=== PATIENT | female | born 1950 | race Caucasian/White ===

== ENCOUNTER 2016-10-27 18:42 | Inpatient (IN) | payer MEDICARE, OTHER ==
[~2016-10-27] VITALS: Ht 157.5 cm; Wt 63.7 kg
[2016-10-27] MEDS ORDERED: ONDANSETRON 4MG/2ML VIAL (J2405) As Ordered ONE (20:27)
[2016-10-27] MEDS ORDERED: MORPHINE 4 MG/ML 1ML SYRINGE As Ordered ONE (20:27)
[2016-10-27 20:31] LABS: BASO # 0.1 K/mm3 (0.0-0.2); BASO % 1.9 % (0.0-1.0); EOS # 0.1 K/mm3 (0.0-0.50); EOS % 1.8 % (0.0-3.0); LARGE UNSTAINED CELL # 0.1 K/mm3 (0.0-0.4); LARGE UNSTAINED CELL % 1.3 % (0.0-4.0); LYMPH # 1.7 K/mm3 (1.5-4.5); LYMPH % 22.6 % (24.0-44.0); MEAN CORPUSCULAR HEMOGLOBIN 30.3 pg (27.0-33.0); MEAN CORPUSCULAR HGB CONC 31.8 g/dl (32.0-36.5); MEAN CORPUSCULAR VOLUME 95.3 fl (80.0-96.0); MONO # 0.4 K/mm3 (0.0-0.8); NEUTROPHILS # 4.7 K/mm3 (1.8-7.7); NEUTROPHILS % 66.4 % (36.0-66.0); PLATELET COUNT, AUTOMATED 279 k/mm3 (150-450); RED CELL DISTRIBUTION WIDTH 13.5 % (11.5-14.5)
[2016-10-27 20:51] LABS: ALBUMIN 3.9 GM/DL (3.2-5.2); ALBUMIN/GLOBULIN RATIO 1.18 (1.00-1.93); ALKALINE PHOSPHATASE 390 U/L (45-117); ALT/SGPT 865 U/L (12-78); AMYLASE 28 U/L (25-115); ANION GAP 8 MEQ/L (8-16); AST/SGOT 485 U/L (15-37); BILIRUBIN,DIRECT 4.7 MG/DL (0.0-0.2); BILIRUBIN,TOTAL 6.7 MG/DL (0.2-1.0); BLOOD UREA NITROGEN 9 MG/DL (7-18); CARBON DIOXIDE LEVEL 28 MEQ/L (21-32); CHLORIDE LEVEL 103 MEQ/L (98-107); CREATININE FOR GFR 0.86 MG/DL (0.55-1.02); GLOMERULAR FILTRATION RATE > 60.0 (>45); GLUCOSE, FASTING 92 MG/DL (80-110); SODIUM LEVEL 139 MEQ/L (136-145); TOTAL PROTEIN 7.2 GM/DL (6.4-8.2)
[2016-10-27] MEDS ORDERED: ONDA1TAB16 PO (21:51)
[2016-10-27] MEDS ORDERED: OMEP20TA PO (21:51)
[2016-10-27] MEDS ORDERED: ACET50TAOT PO (21:51)
--- NOTE | 2016-10-27 22:00 | REPUSA ---
CLINICAL HISTORY: Biliary colic TECHNIQUE: Realtime sonographic images were obtained in multiple projections. COMMENTS: The liver is of normal size, parenchyma demonstrates normal echogenicity. No discrete hepatic mass is seen. There is no intra or extrahepatic biliary ductal dilatation. CBD measures . The gallbladder is physio logically distended with sludge and stones. Wall thickening of 4.3 mm noted without pericholecystic f luid or sonographic Paulino sign. CBD is dilated at 1.0 cm. The right kidney measures 10.0 cm otherwise unremarkable. No free fluid. IMPRESSION: Cholelithiasis and small sludge is noted with wall thickening. No additional findings to suggest acut e cholecystitis. CBD however is dilated at 1 cm and MRCP should be considered to exclude choledocholi thiasis. Thank you for your kind referral of this patient.
[2016-10-27] MEDS ORDERED: ZOSYN 3.375 GM VIAL (J2543) As Ordered ONE (22:08)
[2016-10-27] MEDS: LR 1,000 ML IV SCH (22:22)
[2016-10-27] MEDS ORDERED: ONDANSETRON 4MG/2ML VIAL (J2405) IV PRN (22:30)
[2016-10-27] MEDS ORDERED: ACETAMINOPHEN TAB 650MG DOSE (2X325MG) PO PRN (22:30)
[2016-10-27] MEDS ORDERED: MORPHINE 4 MG/ML 1ML SYRINGE IV PRN (22:30)
[2016-10-27] MEDS ORDERED: NORCO, ANEXSIA 5/325MG TABLET (HYDROcodone/ACETAMINOPHEN) PO PRN (22:30)
[2016-10-27] MEDS ORDERED: metroNIDAZOLE/NACL 500MG(5MG/ML)100 ML BAG (S0030) As Ordered ONE (23:19)
[2016-10-27 23:58] VITALS: BP 151/85
[2016-10-28] VITALS (7 sets, daily range): BP systolic 117–171; BP diastolic 64–85
--- NOTE | 2016-10-28 00:09 | EDDOCDS ---
Physician Documentation [facility] Name: Surekha Branch Age: 65 yrs Sex: Female : 1950 Arrival Date: 10/27/2016 Time: 18:42 Bed I5 / M5 Private MD: Unknown, Family Dr Disposition: 10/27/16 22:27 Hospitalization ordered by Rito Haider for Inpatient Admission. Preliminary diagnosis are Obstruction of bile duct, Other cholelithiasis with obstruction. - Bed requested for 4 [place]. - Status is Inpatient Admission. lf1 - Condition is Stable. - Problem is new. - Symptoms are unchanged. Historical: - Allergies: no known allergies; - Home Meds: 1. omeprazole 20 mg Oral cpDR 1 cap once daily 2. ondansetron HCl 8 mg Oral tab every 12 hours (Last dose: 10/27/2016 08:00) - PMHx: none; - PSHx: ; - Social history: Smoking status: Patient uses tobacco products, light tobacco smoker. No barriers to communication noted, The patient speaks fluent Hong Konger, Speaks appropriately for age. - Family history: Not pertinent. - : The pt / caregiver states he / she is not on anticoagulants. Home medication list is obtained from the patient, pill bottles. - Exposure Risk Screening:: None identified. Vital Signs: 10/27 18:44 BP 146 / 84; Pulse 76; Resp 18; Temp 97.4(O); Pulse Ox 97% on R/A; Weight 60.78 kg / elp 134 lbs (R); Height 5 ft. 2 in. (157.48 cm) (R); 22:05 BP 122 / 67; Pulse 73; Resp 20; Temp 97.7(O); Pulse Ox 96% on R/A; Pain 0/10; jmv 23:05 BP 126 / 74; Pulse 72; Resp 16; Temp 97.3(O); Pulse Ox 96% on R/A; Pain 0/10; lf1 23:07 Pain 0/10; lf1 18:44 Body Mass Index 24.51 (60.78 kg, 157.48 cm) elp MDM: 19:58 NS 0.9% 1000 ml IV at bolus once ordered. mo1 19:58 Ondansetron 4 mg IVP once ordered. mo1 19:58 IV Saline Lock ordered. mo1 19:58 Undress patient appropriately for examination ordered. mo1 19:58 morphine 4 mg IVP once ordered. mo1 19:59 Basic Metabolic Profile Ordered. EDMS 19:59 CBC with Diff Ordered. EDMS 19:59 Lipase Ordered. EDMS 19:59 Liver Profile Ordered. EDMS 19:59 Urinalysis Ordered. EDMS 19:59 Amylase Ordered. EDMS 19:59 Urine Culture Ordered. EDMS 19:59 NOTHING BY MOUTH+DIET ordered. EDMS 20:17 Financial registration complete. gjb 20:20 [facility] Payment Agreement was scanned into [employer] (Inspect Manager) and attached to record. gjb 21:01 US Gallbladder Ordered. EDMS 21:10 Amylase Reviewed. mo1 21:11 Lipase Reviewed. mo1 21:11 Basic Metabolic Profile Reviewed. mo1 21:11 Urinalysis Reviewed. mo1 21:12 Liver Profile Reviewed. mo1 21:12 CBC with Diff Reviewed. mo1 21:15 -Blood Culture (Adults Only), peripheral from different site, or from device/port/PICC mo1 etc. if present ordered. 21:15 -Blood Culture Ordered. EDMS 21:19 Lactic Acid (Stewart tube on ice) Ordered. EDMS 21:23 -Blood Culture (Adults Only), peripheral from different site, or from device/port/PICC rs6 etc. if present complete. 21:25 BLOOD CULTURES Ordered. EDMS 21:26 BED REQUEST+ADM ordered. EDMS 21:47 Piperacillin-Tazobactam 3.375 grams IVPB once over 30 mins; dilute in 50mL of NS or D5W mo1 ordered. 22:28 Admission / Observation Status ordered. EDMS 22:29 NPO DIET ordered. EDMS 23:15 metroNIDAZOLE 500 mg IV at 100 mL/hr once over 60 mins ordered. lf1 23:16 LR Solution 1000 ml IV at 125 mL/hr once ordered. lf1 Administered Medications: 20:39 Drug: morphine 4 mg [morphine 4 mg/mL intravenous cartridge (1 mL)] Route: IVP; Site: lf1 right antecubital; 23:07 Follow up: Pain 0/10 Adult; Response: Pain is resolved lf1 20:40 Drug: NS 0.9% 1000 ml [sodium chloride 0.9 % intravenous solution] Route: IV; Rate: lf1 bolus; Site: right antecubital; 23:07 Follow up: IV Status: Completed infusion; Infusion discontinued; IV Intake: 1000ml lf1 20:40 Drug: Ondansetron 4 mg [ondansetron HCl 2 mg/mL intravenous solution (2 mL)] Route: lf1 IVP; Site: right antecubital; 22:15 Drug: NS 0.9% 50 ml, Piperacillin-Tazobactam 3.375 grams Route: IVPB; Infused Over: 30 ttb mins; Site: right antecubital; 22:57 Follow up: Response: No Adverse Reaction; No significant change.; IV Status: Completed ttb infusion; IV Intake: 50ml 23:07 Follow up: IV Status: Completed infusion; IV Intake: 50ml lf1 23:14 CANCELLED (Duplicate Order): metroNIDAZOLE 500 mg IV at 100 mL/hr once over 60 mins lf1 23:27 Drug: metroNIDAZOLE 500 mg [metronidazole 500 mg/100 mL-sodium chloride(iso) lf1 intravenous piggyback] Route: IV; Rate: 100 mL/hr; Infused Over: 60 mins; Site: right antecubital; 23:35 Drug: LR 1000 ml [lactated ringers intravenous solution] {Note: Held until antibiotic lf1 finished, transported with pt. on admit.} Route: IV; Rate: 125 mL/hr; Site: right antecubital; Signatures: Dispatcher [employer] Emilia Metz RN RN Juanpablo Ovalle RN RN mlb1 Analisa Barnard RN RN jo3 Ford, LisaRN RN lf1 Juanpablo Chase PA PA mo1 Maggi Landry, LILIANE CLINICAL UNIT COORDINATOR rs6 Cyndie Gautam Teresa RN ttb The chart was reviewed and I authenticate all verbal orders and agree with the evaluation and treatment provided.Corrections: (The following items were deleted from the chart) 23:14 23:14 metroNIDAZOLE 500 mg IV at 100 mL/hr once over 60 mins ordered. lf1 lf1 Attachments: 20:20 [facility] Payment Agreement [email or web address]
--- NOTE | 2016-10-28 00:09 | EDDOCDS ---
Nurse's Notes [facility] Name: Surekha Branch Age: 65 yrs Sex: Female : 1950 Arrival Date: 10/27/2016 Time: 18:42 Bed I5 / M5 Private MD: Unknown, Family Dr Diagnosis: Obstruction of bile duct;Other cholelithiasis with obstruction Presentation: 10/27 18:49 Presenting complaint: Patient states: Upper abdominal pain nonstop for the past four mlb1 days US at [facility] this am sent here from PCP Robert Bae. Adult Sepsis Screening: The patient does not have new or worsening altered mentation. Patient's respiratory rate is less than 22. Systolic blood pressure is greater than 100. Patient has a qSOFA score of 0- Negative Sepsis Screen. Suicide/Homicide risk assessment- the patient denies having any suicidal and/or homicidal ideations and does not present with any other emotional, behavioral or mental health complaints. Status: Patient is not a director professional services or dependent. Transition of care: patient was received from a primary care office; Robert Bae. 18:49 Acuity: MAURICIO Level 3 mlb1 18:49 Method Of Arrival: Walkin/Carried/Asstd mlb1 Triage Assessment: 18:55 General: Appears in no apparent distress, Behavior is appropriate for age, cooperative. mlb1 Pain: Location: right upper quadrant and left upper quadrant Pain currently is 4 out of 10 on a pain scale. Pt Declines HIV testing. Historical: - Allergies: no known allergies; - Home Meds: 1. omeprazole 20 mg Oral cpDR 1 cap once daily 2. ondansetron HCl 8 mg Oral tab every 12 hours (Last dose: 10/27/2016 08:00) - PMHx: none; - PSHx: ; - Social history: Smoking status: Patient uses tobacco products, light tobacco smoker. No barriers to communication noted, The patient speaks fluent Yakut, Speaks appropriately for age. - Family history: Not pertinent. - : The pt / caregiver states he / she is not on anticoagulants. Home medication list is obtained from the patient, pill bottles. - Exposure Risk Screening:: None identified. Screenin:27 Screening information is obtained from the patient. Fall risk: No risks identified. jo3 Assistance ADL's: requires no assistance with activities of daily living. Abuse/DV Screen: The patient / caregiver reports he/she is: not in a situation that causes fear, pain or injury. Nutritional screening: No deficits noted. Advance Directives: There is no active DNR order. home support is adequate. Assessment: 20:27 General: Appears in no apparent distress, comfortable, Behavior is appropriate for age, jo3 cooperative. Neurological: Level of Consciousness is awake, alert, Oriented to person, place, time. Cardiovascular: No deficits noted. Respiratory: Airway is patent Respiratory effort is even, unlabored. GI: Abdomen is non- distended Bowel sounds present X 4 quads. Abd is soft X 4 quads Abd is tender to palpation in right upper quadrant. Derm: Skin is pink, warm & dry. 21:30 General: Appears comfortable, Behavior is cooperative. Pain: Location: abdomen Pain lf1 currently is 4 out of 10 on a pain scale. Neurological: Level of Consciousness is awake, alert. Respiratory: Respiratory effort is even, unlabored. 22:24 General: Appears comfortable, Behavior is cooperative. Pain: Location: left upper lf1 quadrant and right upper quadrant Pain currently is 6 out of 10 on a pain scale. Neurological: Level of Consciousness is awake, alert, Oriented to person, place, time. Respiratory: Respiratory effort is even, unlabored. GI: Denies nausea, vomiting. : Urine is tea colored urine. Derm: Skin is normal. 22:59 General: abx completed and pt ready for transport to floor. Report given to next RN to ttb continue care.. Neurological: Level of Consciousness is awake, alert. Cardiovascular: Chest pain is denied. Respiratory: Denies cough, shortness of breath. GI: Denies nausea, vomiting. 23:05 General: Appears comfortable, Behavior is cooperative. Pain: Denies pain. Neurological: lf1 Level of Consciousness is awake, alert, obeys commands, Oriented to person, place, time. EENT: No deficits noted. Cardiovascular: Chest pain is denied. Respiratory: Respiratory effort is even, unlabored. GI: Denies nausea, vomiting. Derm: Skin is normal. Injury Description: No known injury. 23:36 Adult Sepsis Screening: The patient does not have new or worsening altered mentation. lf1 Patient's respiratory rate is less than 22. Systolic blood pressure is greater than 100. Patient has a qSOFA score of 0- Negative Sepsis Screen. General: Appears in no apparent distress, comfortable, Behavior is cooperative. Pain: Denies pain. Neurological: Level of Consciousness is awake, alert. Respiratory: Respiratory effort is even, unlabored. Derm: Skin is normal. Vital Signs: 18:44 BP 146 / 84; Pulse 76; Resp 18; Temp 97.4(O); Pulse Ox 97% on R/A; Weight 60.78 kg (R); elp Height 5 ft. 2 in. (157.48 cm) (R); 22:05 BP 122 / 67; Pulse 73; Resp 20; Temp 97.7(O); Pulse Ox 96% on R/A; Pain 0/10; jmv 23:05 BP 126 / 74; Pulse 72; Resp 16; Temp 97.3(O); Pulse Ox 96% on R/A; Pain 0/10; lf1 23:07 Pain 0/10; lf1 18:44 Body Mass Index 24.51 (60.78 kg, 157.48 cm) [facility] Vitals: 18:44 Log In Time: October 27, 2016 at 18:41. [facility] ED Course: 18:44 Patient visited by Stacie Do PCA. elp 18:44 Unknown, Family Dr is Private Physician. elp 18:44 Patient moved to Waiting elp 18:45 Patient visited by Stacie Do PCA. elp 18:45 Patient moved to Pre RCE gr2 18:49 Patient visited by Juanpablo Boles, RN. mlb1 18:53 Triage Initiated mlb1 18:56 Patient visited by Juanpablo Boles, RN. mlb1 19:15 Patient moved to Triage 3 rs6 19:38 Juanpablo Chase PA is PHCP. mo1 19:38 Kam Ojeda DO is Attending Physician. mo1 19:56 Patient moved to I5 / M5 rs6 19:57 Patient visited by Juanpablo Chase PA. mo1 20:20 [facility] [place] Agreement was scanned into [employer] and attached to record. gjb 20:26 Amylase Sent. jo3 20:26 Basic Metabolic Profile Sent. jo3 20:26 CBC with Diff Sent. jo3 20:26 Lipase Sent. jo3 20:26 Liver Profile Sent. jo3 20:27 The patient / caregiver is instructed regarding the plan of care and ED course. jo3 20:27 Inserted saline lock: 18 gauge in right antecubital area. Labs drawn. (by ED staff). jo3 Sent per order to lab. 20:30 Patient visited by Analisa Barnard RN. jo3 20:40 Urinalysis Sent. lf1 20:40 Urine Culture Sent. lf1 21:17 Patient name changed from Surekha\S\\S\Branch\S\ to Surekha\S\ \S\Branch. EDMS 21:19 Patient moved to Ultrasound br3 21:42 Patient moved to I5 / M5 br3 22:06 Patient visited by Kana Waite PCA. jmv 22:24 Lactic Acid (Stewart tube on ice) Sent. lf1 22:24 -Blood Culture Sent. lf1 22:26 Rito Haider MD is Hospitalizing Provider. mo1 22:29 Patient visited by Kathrin Caldwell RN. lf1 22:44 US Gallbladder Returned. EDMS 23:00 Patient visited by Bella Foster RN. ttb 23:05 No procedures done that require assistance. lf1 Administered Medications: 20:39 Drug: morphine 4 mg [morphine 4 mg/mL intravenous cartridge (1 mL)] Route: IVP; Site: lf1 right antecubital; 23:07 Follow up: Pain 0/10 Adult; Response: Pain is resolved lf1 20:40 Drug: NS 0.9% 1000 ml [sodium chloride 0.9 % intravenous solution] Route: IV; Rate: lf1 bolus; Site: right antecubital; 23:07 Follow up: IV Status: Completed infusion; Infusion discontinued; IV Intake: 1000ml lf1 20:40 Drug: Ondansetron 4 mg [ondansetron HCl 2 mg/mL intravenous solution (2 mL)] Route: lf1 IVP; Site: right antecubital; 22:15 Drug: NS 0.9% 50 ml, Piperacillin-Tazobactam 3.375 grams Route: IVPB; Infused Over: 30 ttb mins; Site: right antecubital; 22:57 Follow up: Response: No Adverse Reaction; No significant change.; IV Status: Completed ttb infusion; IV Intake: 50ml 23:07 Follow up: IV Status: Completed infusion; IV Intake: 50ml lf1 23:14 CANCELLED (Duplicate Order): metroNIDAZOLE 500 mg IV at 100 mL/hr once over 60 mins lf1 23:27 Drug: metroNIDAZOLE 500 mg [metronidazole 500 mg/100 mL-sodium chloride(iso) lf1 intravenous piggyback] Route: IV; Rate: 100 mL/hr; Infused Over: 60 mins; Site: right antecubital; 23:35 Drug: LR 1000 ml [lactated ringers intravenous solution] {Note: Held until antibiotic lf1 finished, transported with pt. on admit.} Route: IV; Rate: 125 mL/hr; Site: right antecubital; Intake: 22:57 IV: 50.00ml; Total: 50.00ml. ttb 23:07 IV: 50.00ml; Total: 100.00ml. lf1 23:07 IV: 1000.00ml; Total: 1100.00ml. lf1 Order Results: Lab Order: Basic Metabolic Profile; SPEC'M 10/27/16 20:21 Test: GLUCOSE, FASTING; Value: 92; Range: 80-110; Units: MG/DL; Status: F Test: BLOOD UREA NITROGEN; Value: 9; Range: 7-18; Units: MG/DL; Status: F Test: CREATININE FOR GFR; Value: 0.86; Range: 0.55-1.02; Units: MG/DL; Status: F Test: GLOMERULAR FILTRATION RATE; Value: > 60.0; Range: >45; Status: F Test: SODIUM LEVEL; Value: 139; Range: 136-145; Units: MEQ/L; Status: F Test: POTASSIUM SERUM; Value: 4.0; Range: 3.5-5.1; Units: MEQ/L; Status: F Test: CHLORIDE LEVEL; Value: 103; Range: 98-107; Units: MEQ/L; Status: F Test: CARBON DIOXIDE LEVEL; Value: 28; Range: 21-32; Units: MEQ/L; Status: F Test: ANION GAP; Value: 8; Range: 8-16; Units: MEQ/L; Status: F Test: CALCIUM LEVEL; Value: 9.0; Range: 8.8-10.2; Units: MG/DL; Status: F Test Note: ; Units are mL/min/1.73 m2 Chronic Kidney Disease Staging per NKF: Stage I & II GFR >=60 Normal to Mildly Decreased Stage III GFR 30-59 Moderately Decreased Stage IV GFR 15-29 Severely Decreased Stage V GFR <15 Very Little GFR Left ESRD GFR <15 on TENSILE TESTER Lab Order: CBC with Diff; SPEC'M 10/27/16 20:21 Test: WHITE BLOOD COUNT; Value: 7.0; Range: 4.0-10.0; Units: K/mm3; Status: F Test: RED BLOOD COUNT; Value: 4.68; Range: 4.00-5.40; Units: M/mm3; Status: F Test: HEMOGLOBIN; Value: 14.2; Range: 12.0-16.0; Units: g/dl; Status: F Test: HEMATOCRIT; Value: 44.6; Range: 36.0-47.0; Units: %; Status: F Test: MEAN CORPUSCULAR VOLUME; Value: 95.3; Range: 80.0-96.0; Units: fl; Status: F Test: MEAN CORPUSCULAR HEMOGLOBIN; Value: 30.3; Range: 27.0-33.0; Units: pg; Status: F Test: MEAN CORPUSCULAR HGB CONC; Value: 31.8; Range: 32.0-36.5; Abnormal: Below low normal; Units: g/dl; Status: F Test: RED CELL DISTRIBUTION WIDTH; Value: 13.5; Range: 11.5-14.5; Units: %; Status: F Test: PLATELET COUNT, AUTOMATED; Value: 279; Range: 150-450; Units: k/mm3; Status: F Test: NEUTROPHILS %; Value: 66.4; Range: 36.0-66.0; Abnormal: Above high normal; Units: %; Status: F Test: LYMPH %; Value: 22.6; Range: 24.0-44.0; Abnormal: Below low normal; Units: %; Status: F Test: MONO %; Value: 6.0; Range: 0.0-5.0; Abnormal: Above high normal; Units: %; Status: F Test: EOS %; Value: 1.8; Range: 0.0-3.0; Units: %; Status: F Test: BASO %; Value: 1.9; Range: 0.0-1.0; Abnormal: Above high normal; Units: %; Status: F Test: LARGE UNSTAINED CELL %; Value: 1.3; Range: 0.0-4.0; Units: %; Status: F Test: NEUTROPHILS #; Value: 4.7; Range: 1.8-7.7; Units: K/mm3; Status: F Test: LYMPH #; Value: 1.7; Range: 1.5-4.5; Units: K/mm3; Status: F Test: MONO #; Value: 0.4; Range: 0.0-0.8; Units: K/mm3; Status: F Test: EOS #; Value: 0.1; Range: 0.0-0.50; Units: K/mm3; Status: F Test: BASO #; Value: 0.1; Range: 0.0-0.2; Units: K/mm3; Status: F Test: LARGE UNSTAINED CELL #; Value: 0.1; Range: 0.0-0.4; Units: K/mm3; Status: F Lab Order: Lipase; SPEC'M 10/27/16 20:21 Test: LIPASE; Value: 84; Range: 73-393; Units: U/L; Status: F Lab Order: Liver Profile; SPEC'M 10/27/16 20:21 Test: AST/SGOT; Value: 485; Range: 15-37; Abnormal: Above high normal; Units: U/L; Status: F Test: ALT/SGPT; Value: 865; Range: 12-78; Abnormal: Above high normal; Units: U/L; Status: F Test: ALKALINE PHOSPHATASE; Value: 390; Range: 45-117; Abnormal: Above high normal; Units: U/L; Status: F Test: BILIRUBIN,TOTAL; Value: 6.7; Range: 0.2-1.0; Abnormal: Above high normal; Units: MG/DL; Status: F Test: BILIRUBIN,DIRECT; Value: 4.7; Range: 0.0-0.2; Abnormal: Above high normal; Units: MG/DL; Status: F Test: TOTAL PROTEIN; Value: 7.2; Range: 6.4-8.2; Units: GM/DL; Status: F Test: ALBUMIN; Value: 3.9; Range: 3.2-5.2; Units: GM/DL; Status: F Test: ALBUMIN/GLOBULIN RATIO; Value: 1.18; Range: 1.00-1.93; Status: F Lab Order: Urinalysis; SPEC'M 10/27/16 20:30 Test: APPEARANCE, URINE; Value: CLEAR; Range: CLEAR; Status: F Test: COLOR, URINE; Value: ALICE; Range: YELLOW; Status: F Test: PH,URINE; Value: 5.0; Range: 5.0-9.0; Units: UNITS; Status: F Test: SPECIFIC GRAVITY URINE AUTO; Value: 1.030; Range: 1.002-1.035; Status: F Test: PROTEIN, URINE AUTO; Value: 1+; Range: NEGATIVE; Abnormal: Above high normal; Units: mg/dL; Status: F Test: GLUCOSE, URINE (UA) AUTO; Value: NEGATIVE; Range: NEGATIVE; Units: mg/dL; Status: F Test: KETONE, URINE AUTO; Value: TRACE; Range: NEGATIVE; Abnormal: Above high normal; Units: mg/dL; Status: F Test: UROBILINOGEN, URINE AUTO; Value: 4.0; Range: 0.0-2.0; Abnormal: Above high normal; Units: mg/dL; Status: F Test: BILIRUBIN, URINE AUTO; Value: 2+; Range: NEGATIVE; Abnormal: Above high normal; Status: F Test: NITRITE, URINE AUTO; Value: NEGATIVE; Range: NEGATIVE; Status: F Test: LEUKOCYTE ESTERASE, URINE AUTO; Value: 1+; Range: NEGATIVE; Abnormal: Above high normal; Status: F Test: BLOOD, URINE BLOOD; Value: NEGATIVE; Range: NEGATIVE; Status: F Test: WBC, URINE AUTO; Value: 23; Range: 0-3; Abnormal: Above high normal; Units: /HPF; Status: F Test: RBC, URINE AUTO; Value: 1; Range: 0-3; Units: /HPF; Status: F Test: BACTERIA, URINE AUTO; Value: 1+; Range: NEGATIVE; Abnormal: Above high normal; Status: F Test: SQUAMOUS EPITHELIAL CELL UR AU; Value: 2; Range: 0-6; Units: /HPF; Status: F Test: MUCUS, URINE; Value: LARGE; Range: NEGATIVE; Status: F Test: HYALINE CAST, URINE AUTO; Value: 0; Range: 0-1; Units: /LPF; Status: F Lab Order: Amylase; SPEC'M 10/27/16 20:21 Test: AMYLASE; Value: 28; Range: 25-115; Units: U/L; Status: F Lab Order: Lactic Acid (Stewart tube on ice); SPEC'M 10/27/16 22:18 Test: LACTIC ACID LEVEL, LACTATE; Value: 0.8; Range: 0.4-2.0; Units: MMOL/L; Status: F Radiology Order: US Gallbladder Test: US Gallbladder REASON FOR EXAMINATION: Biliary Colic; ; CLINICAL HISTORY: Biliary colic; TECHNIQUE: Realtime sonographic images were obtained in multiple projections.; COMMENTS:; The liver is of normal size, parenchyma demonstrates normal echogenicity. No discrete hepatic mass is; seen.; There is no intra or extrahepatic biliary ductal dilatation. CBD measures . The gallbladder is physio; logically distended with sludge and stones. Wall thickening of 4.3 mm noted without pericholecystic f; luid or sonographic Paulino sign. CBD is dilated at 1.0 cm.; The right kidney measures 10.0 cm otherwise unremarkable.; No free fluid.; IMPRESSION:; Cholelithiasis and small sludge is noted with wall thickening. No additional findings to suggest acut; e cholecystitis. CBD however is dilated at 1 cm and MRCP should be considered to exclude choledocholi; thiasis.; Thank you for your kind referral of this patient.; ; Outcome: 22:27 Decision to Hospitalize by Provider. mo1 10/28 00:08 Patient left the ED. lf1 Signatures: Dispatcher [employer] EDWI Juanpablo Boles RN RN mlb1 Analisa BarnardRN RN [id number] Kathrin CaldwellRN RN lf1 Maricruz Rutherford br3 Bella Foster RN RN Duane Yañez Michael, PA PA mo1 Stacie Do, WEB EDITOR WEB EDITOR elp Maggi Landry, WEB EDITOR WEB EDITOR rs6 Cyndie Gautamb Kana Waite, WEB EDITOR WEB EDITOR jmv MTDD
[2016-10-28] MEDS: AMPICILLIN SOD/SULBACTAM SOD 3 GM in D5W MINI-BAG PLUS 100 ML IV SCH ×4 (04:53→21:11)
[2016-10-28] MEDS: LR 1,000 ML IV SCH ×3 (05:00→21:12)
[2016-10-28] MEDS: metroNIDAZOLE 500 MG in APPROPRIATE DILUENT 1 EA IV SCH ×2 (08:49→16:34)
[2016-10-28] MEDS: SENOKOT S TAB PO SCH ×2 (08:49→21:11)
[2016-10-28] MEDS ORDERED: PANTOPRAZOLE 40MG INJ (PROTONIX) (C9113) IV SCH (09:00)
--- NOTE | 2016-10-28 09:05 | HPE ---
DATE OF ADMISSION: 10/27/2016 CHIEF COMPLAINT: Abdominal pain. HISTORY OF PRESENT ILLNESS: Ms. Branch is a 65-year-old female who is relatively healthy. She was sent by her primary care doctor after she presented to her complaining of a 4-5 day history of steady epigastric pain and discomfort. The patient reports she has been having intermittent on and off vague the pain, usually post prandial, starts in her periumbilical area and radiates to the right upper quadrant, her right shoulder and in between her scapula. This would go away on its own. She was started on Prilosec thinking this was dyspeptic like symptoms. For the past at least a 4 days, this has been a steady sharp pain accompanied with nausea, anorexia, though she denies any fevers or chills. She went to her physician who did an ultrasound showing a dilated common bile duct. Her LFTs were abnormal. She was then sent to the emergency room for further evaluation. In the ER she was found to have elevated LFTs. I was then called in as well as the talent development manager for what is suspected to be biliary obstruction from a common bile duct stone. ALLERGIES: No known drug allergies. MEDICATIONS: None. PAST MEDICAL HISTORY: None. HOME MEDICATIONS: - acetaminophen 500 mg tablet by mouth every 6 hours for pain - omeprazole 20 mg by mouth twice a day - Zofran ODT 8 mg by mouth twice a day as needed PAST SURGICAL HISTORY: section. REVIEW OF SYSTEMS: As mentioned, ongoing abdominal pain for the past few months. She denies any unexplained weight loss. Denies fevers or chills. The patient denies any chronic or recurrent headaches, history of strokes or seizures. Denies any problems with vision. She wears glasses. She denies any problems with hearing. Denies any hoarseness in her voice, dysphagia on swallowing. The patient denies any chest pains, palpitations, paroxysmal nocturnal dyspnea. The patient denies any chronic cough or colds, dyspnea on effort. Gastrointestinal symptoms enumerated in history of present illness. Denies dysuria, hematuria, nocturia. No prior history of diabetes, thyroid problems or other endocrine problems. She denies polydipsia, polyphagia, or polyuria. The patient denies any bleeding or clotting disorder. Denies any severe psychiatric impairment. Denies radiocontrast allergy. Denies any problems with general anesthesia. PHYSICAL EXAMINATION: Her vitals in the emergency room on arrival at about 6:44 p.m. blood pressure was 146/84, pulse rate 76, respiratory rate of 18, temperature of 97.4, pulse oximetry 97% on room air. Weight is 60.7 kg, height is 57 cm, BMI of 25.7 kg per meter squared. At the time that I examined the patient, the patient reports the discomfort having gone away. When she presented she reported her pain as 10/10 centered in her midepigastric area. Skin is warm, dry. She is awake, alert and oriented. She is pleasant and cooperative. Normocephalic, atraumatic. [place] palpebral conjunctiva. Anicteric sclerae. Lips appear mildly dry. Neck is supple. No lymphadenopathy. No thyromegaly. Lung sounds are clear to auscultation bilaterally. No wheezing appreciated. Heart rate and rhythm are regular with no murmurs. Abdomen is flat, soft, minimally distended, slightly tympanitic on percussion. No umbilical groin herniations, no hepatosplenomegaly, minimal discomfort but no real tenderness on examination centered at the epigastric area. No rebound or guarding. Extremities did not show any edema, deformities or cyanosis. LABORATORIES: White cell count 7.0, hemoglobin 14.2, hematocrit 44.6, platelet count is 279, neutrophils are 66%. Chemistries: Sodium is 139, potassium 4.0, chloride is 103, CO2 of 28, BUN 9, creatinine 0.86, lactic acid 0.8, total bilirubin is 6.7, direct fraction is 4.7, AST 485, ALT of 865, alkaline phosphatase of 390, amylase of 28, lipase of 84. Gallbladder ultrasound has been performed and shows evidence for cholelithiasis and sludge with minimal wall thickening. Common bile duct is noted to be 1 cm. No stones visualized. IMPRESSION: 1. Abnormal LFTs. 2. Biliary obstruction secondary to what most likely is a common bile duct stone. 3. Cholelithiasis. PLAN: Gastroenterology has been consulted. Dr. Parr has seen the patient and is planning to bring the patient to the operating room for an ERCP. If this is successful and no complications, will go ahead and schedule the patient for a laparoscopic cholecystectomy tomorrow. I have discussed with her the details of the procedure, its risks and benefits. For now, we will continue her on Unasyn and metronidazole for coverage. She is on IV fluid. She is nothing by mouth.
[2016-10-28] MEDS ORDERED: fentaNYL 100 MCG/2 ML INJECTION (J3010) As Ordered ONE (17:42)
[2016-10-28] MEDS ORDERED: LIDOCAINE 2% INJ 100 MG/5 ML SDV (FOR ANES.) As Ordered ONE (17:42)
[2016-10-28] MEDS ORDERED: ROCURONIUM BROMIDE 50 MG/5 ML VIAL As Ordered ONE (17:42)
[2016-10-28] MEDS ORDERED: MIDAZOLAM INJ 2 MG/2 ML VIAL (J2250) As Ordered ONE (17:42)
[2016-10-28] MEDS ORDERED: PROPOFOL 200 MG/20 ML VIAL As Ordered ONE (17:42)
[2016-10-28] MEDS ORDERED: ISOVUE-300 61% 50ML VIAL (Q9967) As Ordered ONE (17:51)
[2016-10-28] MEDS ORDERED: ISOVUE-300 61% 50ML VIAL (Q9967) IV ONE (18:02)
[2016-10-28] MEDS ORDERED: GLYCOPYRROLATE INJ 0.2 MG/ML 2 ML VIAL As Ordered ONE (18:02)
[2016-10-28] MEDS ORDERED: NEOSTIGMINE 1MG/ML 5 ML SYRINGE (J2710) As Ordered ONE (18:02)
[2016-10-28] MEDS ORDERED: ONDANSETRON 4MG/2ML VIAL (J2405) As Ordered ONE (18:02)
--- NOTE | 2016-10-28 18:15 | ROOR ---
Patient Name: Surekha Branch Procedure Date: 10/28/2016 5:27 PM Date of : 1950 Age: 65 Room: Main OR Gender: Female Note Status: Finalized Procedure: ERCP Indications: Abdominal pain of suspected biliary origin, Jaundice, Abnormal liver function test Providers: Philippe PARR MD Referring MD: 2. Inpatient 2. Inpatient Requesting Provider: Medicines: Monitored Anesthesia Care, General Anesthesia Complications: No immediate complications. Procedure: Pre-Anesthesia Assessment: - The heart rate, respiratory rate, oxygen saturations, blood pressure, adequacy of pulmonary ventilation, and response to care were monitored throughout the procedure. The Duodenoscope was introduced through the mouth, and advanced to the duodenum and used to inject contrast into the bile duct. The ERCP was accomplished without difficulty. The patient tolerated the procedure well. Findings: The dish washer film was normal. The esophagus was successfully intubated under direct vision. The scope was advanced from the mouth to the duodenum. The pharynx, larynx and associated structures, as well as the upper GI tract, were normal. The major papilla was lacerated. The major papilla was congested. A straight Roadrunner wire was passed into the biliary tree. The short-nosed traction sphincterotome was passed over the guidewire and the bile duct was then deeply cannulated. Contrast was injected. I personally interpreted the bile duct images. Ductal flow of contrast was adequate. Image quality was adequate. Opacification of the entire opacified area was successful. The maximum diameter of the ducts was 10 mm. The intra-hepatic and extra-hepatic biliary duct system was normal. The biliary orifice was stenotic. This appeared benign. An 8 mm biliary sphincterotomy was made with a traction (standard) sphincterotome using ERBE electrocautery. There was no post-sphincterotomy bleeding. The biliary tree was swept with a 10 mm balloon starting at the bifurcation. Nothing was found. Impression: - The major papilla appeared lacerated and congested. - The cholangiogram was normal. However I am unable to confirm spontaneous drainage of duct after 4-5 minutes of observation. 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 - A sphincterotomy was performed to allow for spontaneous contrast drainage. - The biliary tree was swept and nothing was found. Recommendation: - Observe patient's clinical course. - Clear liquid diet - advance as tolerated to resume regular diet. - Surgical consultation for consideration of cholecystectomy at the next available appointment. Philippe Parr MD Philippe PARR MD 10/28/2016 6:15:15 PM This report has been signed electronically. Number of Addenda: 0 Note Initiated On: 10/28/2016 5:27 PM Estimated Blood Loss: Estimated blood loss: none.
[2016-10-28] MEDS ORDERED: LR 1,000 ML IV SCH (18:45)
[2016-10-28] MEDS ORDERED: ONDANSETRON 4MG/2ML VIAL (J2405) IV PRN (18:45)
[2016-10-28] MEDS ORDERED: HYDROmorphone HCL 1 MG/ML SYRINGE (J1170) IV PRN (18:45)
[2016-10-28] MEDS ORDERED: fentaNYL 100 MCG/2 ML INJECTION (J3010) IV PRN (18:45)
--- NOTE | 2016-10-28 19:01 | REP ---
ERCP in OR, fluoroscopic guidance: 10/28/2016. 18 images from C-arm fluoroscopy guidance provided to Dr. Parr of the gastroenterology division. The 18 images show endoscopy scope in the duodenum. Probe extends into the biliary tract with the common duct well seen and opacified. It has smooth margins and no filling defects visible on these images. The main hepatic duct, right and left intrahepatic ducts were grossly intact without stenosis, stricture or mass. Contrast extends to the cystic duct into the gallbladder. Gallbladder is partially filled. No filling defects are seen within it. There appears to be some narrowing of its distal aspect towards the cystic duct. The balloon catheter is pulled through the common duct for this exam. No persistent filling defects or other acute finding. Fluoroscopy time: 2 minutes 30 seconds. Signed by Jagdish Henry MD 10/28/2016 08:19 P
[2016-10-28] MEDS: NORCO, ANEXSIA 5/325MG TABLET (HYDROcodone/ACETAMINOPHEN) PO PRN (21:11)
[2016-10-29] VITALS (10 sets, daily range): BP systolic 108–164; BP diastolic 58–80
[2016-10-29] MEDS: metroNIDAZOLE 500 MG in APPROPRIATE DILUENT 1 EA IV SCH ×3 (00:08→15:01)
[2016-10-29] MEDS: LR 1,000 ML IV SCH (02:27)
[2016-10-29] MEDS: AMPICILLIN SOD/SULBACTAM SOD 3 GM in D5W MINI-BAG PLUS 100 ML IV SCH ×4 (04:23→21:34)
[2016-10-29 07:32] LABS: BASO % 0.6 % (0.0-1.0); EOS # 0.1 K/mm3 (0.0-0.50); LARGE UNSTAINED CELL # 0.1 K/mm3 (0.0-0.4); LYMPH # 1.1 K/mm3 (1.5-4.5); MEAN CORPUSCULAR HEMOGLOBIN 31.6 pg (27.0-33.0); MEAN CORPUSCULAR VOLUME 92.8 fl (80.0-96.0); MONO # 0.2 K/mm3 (0.0-0.8); MONO % 5.5 % (0.0-5.0); NEUTROPHILS # 1.9 K/mm3 (1.8-7.7); NEUTROPHILS % 55.9 % (36.0-66.0); PLATELET COUNT, AUTOMATED 169 k/mm3 (150-450); RED CELL DISTRIBUTION WIDTH 12.5 % (11.5-14.5); WHITE BLOOD COUNT 3.3 K/mm3 (4.0-10.0)
[2016-10-29 07:59] LABS: ALBUMIN 2.8 GM/DL (3.2-5.2); ALBUMIN/GLOBULIN RATIO 1.33 (1.00-1.93); ALKALINE PHOSPHATASE 361 U/L (45-117); ALT/SGPT 510 U/L (12-78); ANION GAP 7 MEQ/L (8-16); AST/SGOT 316 U/L (15-37); BLOOD UREA NITROGEN 6 MG/DL (7-18); CARBON DIOXIDE LEVEL 29 MEQ/L (21-32); CHLORIDE LEVEL 107 MEQ/L (98-107); CREATININE FOR GFR 0.68 MG/DL (0.55-1.02); GLOMERULAR FILTRATION RATE > 60.0 (>45); GLUCOSE, FASTING 87 MG/DL (80-110); POTASSIUM SERUM 4.3 MEQ/L (3.5-5.1); SODIUM LEVEL 143 MEQ/L (136-145); TOTAL PROTEIN 4.9 GM/DL (6.4-8.2)
[2016-10-29] MEDS: PANTOPRAZOLE 20 MG TAB PO SCH (08:24)
[2016-10-29] MEDS: SENOKOT S TAB PO SCH ×2 (08:24→21:34)
[2016-10-29] MEDS ORDERED: PANTOPRAZOLE 20 MG TAB PO SCH (09:00)
[2016-10-29 09:49] LABS: BILIRUBIN,DIRECT 2.9 MG/DL (0.0-0.2)
[2016-10-29] MEDS ORDERED: LIDOCAINE 1% SDV INJ 30 ML VIAL As Ordered ONE (10:49)
[2016-10-29] MEDS ORDERED: BUPIVACAINE HCL 0.25% 30 ML VIAL As Ordered ONE (10:49)
[2016-10-29] MEDS ORDERED: ONDANSETRON 4MG/2ML VIAL (J2405) As Ordered ONE (11:29)
[2016-10-29] MEDS ORDERED: dexameTHASONE 4 MG/ML 1ML VIAL (J1100) As Ordered ONE (11:29)
[2016-10-29] MEDS ORDERED: ePHEDrine SULFATE 25 MG/5 ML(5MG/ML) SYRINGE As Ordered ONE (11:29)
[2016-10-29] MEDS ORDERED: GLYCOPYRROLATE INJ 0.2 MG/ML 2 ML VIAL As Ordered ONE (11:29)
[2016-10-29] MEDS ORDERED: LIDOCAINE 2% INJ 100 MG/5 ML SDV (FOR ANES.) As Ordered ONE (11:29)
[2016-10-29] MEDS ORDERED: PROPOFOL 200 MG/20 ML VIAL As Ordered ONE (11:29)
[2016-10-29] MEDS ORDERED: MIDAZOLAM INJ 2 MG/2 ML VIAL (J2250) As Ordered ONE (11:29)
[2016-10-29] MEDS ORDERED: fentaNYL 250 MCG/5 ML INJECTION (J3010) As Ordered ONE (11:29)
[2016-10-29] MEDS ORDERED: ROCURONIUM BROMIDE 50 MG/5 ML VIAL As Ordered ONE (11:29)
[2016-10-29] MEDS ORDERED: KETOROLAC 60 MG/2 ML VIAL (J1885) As Ordered ONE (11:29)
[2016-10-29] MEDS ORDERED: NEOSTIGMINE 1MG/ML 5 ML SYRINGE (J2710) As Ordered ONE (11:30)
[2016-10-29] MEDS ORDERED: LABETALOL HCL 100 MG/20 ML VIAL As Ordered ONE (11:48)
[2016-10-29] MEDS ORDERED: LIDOCAINE 1% SDV INJ 30 ML VIAL XX ONE ×2 (11:56→12:22)
[2016-10-29] MEDS ORDERED: BUPIVACAINE HCL 0.25% 30 ML VIAL XX ONE ×2 (11:56→12:22)
[2016-10-29] MEDS ORDERED: PERCOCET 5MG/325MG TAB PO PRN (13:00)
[2016-10-29] MEDS ORDERED: ONDANSETRON 4MG/2ML VIAL (J2405) IV PRN (13:00)
[2016-10-29] MEDS ORDERED: METOCLOPRAMIDE INJ 10MG/2ML VIAL (J2765) IV PRN (13:00)
[2016-10-29] MEDS ORDERED: fentaNYL 100 MCG/2 ML INJECTION (J3010) IV PRN (13:00)
[2016-10-29] MEDS ORDERED: LR 1,000 ML IV SCH (13:00)
--- NOTE | 2016-10-29 13:26 | RO ---
DATE OF PROCEDURE: 10/29/2016 PREOPERATIVE DIAGNOSIS: Cholelithiasis with biliary obstruction. PREOPERATIVE DIAGNOSIS: Cholelithiasis with biliary obstruction. PROCEDURE PERFORMED: Laparoscopic cholecystectomy. SURGEON: Rito Haider MD CREDIT COLLECTIONS ANALYST: Lázaro Ornelas MD ANESTHESIA: General anesthesia. ESTIMATED BLOOD LOSS: Less than 25 mL. COMPLICATIONS: None. REMARKS: Inflamed and swollen gallbladder down to the cystic duct, which was mildly enlarged, though I could not feel any large stones. This was controlled with #0 PDS Endoloop. DESCRIPTON OF PROCEDURE: Ms. Tidwell is currently admitted with biliary obstruction with elevated liver function tests (LFTs). She had an enlarged common bile duct. She underwent endoscopic retrograde cholangiopancreatography (ERCP) yesterday. At that time, no stones were found. A sphincterotomy was performed. Her bilirubin has gone down from 6.7 to 4 today with a direct fraction of 2.9. Her symptoms have resolved. She is scheduled today for laparoscopic cholecystectomy. Details of the procedure, risks and benefits were discussed with the patient among the risk for bile duct injury, bile leakage, possibility of converting open surgery. Patient has given her consent. She has been getting Unasyn and metronidazole perioperatively. She was brought to the operating room. General endotracheal anesthesia started without any complication. Her abdomen prepped and draped in usual sterile fashion. Sequential compressive device (SCD) and boots placed on her lower extremities for deep venous thrombosis (DVT) prophylaxis. After surgical time-out, we began our surgery. About a centimeter and half transverse incision above the umbilicus was created and deepened onto the anterior fascia. A Veress needle inserted. Under controlled fashion, intra-abdominal placement confirmed with saline drop technique. CO2 insufflation started at a pressure of 15 mmHg. Using the same incision, an 11 mm Visiport was placed under direct vision of the laparoscope. The insertion site was inspected for injury. None was found. She was placed on a reverse Trendelenburg position, the right side tilted up about 40 degrees to further expose the gallbladder. Under direct vision, three 5 mm ports were placed at the epigastric area, midclavicular and anterior axillary line area. The gallbladder was noted to be somewhat swollen with some pericholecystic tissue edema. The liver also appears mildly swollen, slightly fatty with some fatty deposition. The fundus of the gallbladder was grasped by my child nutrition assistant. This was elevated superiorly exposing the neck of the gallbladder. The peritoneum was circumferentially dissected free. The infundibulum was located. This retracted laterally. Using a Maryland instrument, the hepatocystic triangle was opened up. The cystic artery was identified. This was more medial than its usual location and it seems like the gallbladder was turned slightly laterally. We dissected the artery circumferentially, went ahead and dissected the neck posteriorly as well as anteriorly. We were able to create a window to identify the cystic duct. We circumferentially dissected the cystic duct, which appears enlarged. I palpated this with my [place] instrument and did not feel any stones within the duct itself. There was some strong fibrous tissue as well due to the rotation of the cystic artery that the lymph node of [place] is slightly placed more anteriorly somewhat impeding the view of the cystic duct. The cystic artery was divided in between four clips. I then continued to dissect the cystic duct antegradely. I tried to place the 10 mm hemoclips, but this would not accommodate the whole of the duct. Thus, I decided to place an Endoloop. The cystic duct was divided just right after it takes off from the infundibulum of the gallbladder. Unfortunately this retracted somewhat into the tissue where it was partially covered by the lymph node and the cystic artery. We dissected this further circumferentially to get more purchase on the cystic duct stump. I in turn used a PDS Endoloop as the Vicryl was sticking to the surrounding soft tissue. We were able to get around the stump of the cystic duct incorporating also the cystic artery with our closure. This was tightened up and the string divided. I did not see any further bile leakage. After retrieving the gallbladder, we inspected our cystic duct stump. The loop seems to be securely tied. I did not notice any further bleeding or bile leakage. At this point, the remaining irrigation as well as the small amount of bleeding was suctioned off. The liver bed itself appears without any bleeding. The abdomen was then deflated. All ports removed. Umbilical fascial defect repaired with #0 Vicryl in mattress fashion. All skin incisions closed with Monocryl in subcuticular fashion. Steri-Strips and gauze dressings then placed. The patient then promptly awakened, extubated, brought to recovery room stable. MAYCOL
[2016-10-30] VITALS: BP 125/60
[2016-10-30] MEDS: metroNIDAZOLE 500 MG in APPROPRIATE DILUENT 1 EA IV SCH ×2 (00:01→09:07)
--- NOTE | 2016-10-30 01:09 | EDDOCDS ---
Physician Documentation [facility] Name: Surekha Branch Age: 65 yrs Sex: Female : 1950 Arrival Date: 10/27/2016 Time: 18:42 Bed I5 / M5 Private MD: Unknown, Family Dr Disposition: 10/27/16 22:27 Hospitalization ordered by Rito Haider for Inpatient Admission. Preliminary diagnosis are Obstruction of bile duct, Other cholelithiasis with obstruction. - Bed requested for 4 [place]. - Status is Inpatient Admission. lf1 - Condition is Stable. - Problem is new. - Symptoms are unchanged. Historical: - Allergies: no known allergies; - Home Meds: 1. omeprazole 20 mg Oral cpDR 1 cap once daily 2. ondansetron HCl 8 mg Oral tab every 12 hours (Last dose: 10/27/2016 08:00) - PMHx: none; - PSHx: ; - Social history: Smoking status: Patient uses tobacco products, light tobacco smoker. No barriers to communication noted, The patient speaks fluent Yoruba, Speaks appropriately for age. - Family history: Not pertinent. - : The pt / caregiver states he / she is not on anticoagulants. Home medication list is obtained from the patient, pill bottles. - Exposure Risk Screening:: None identified. Vital Signs: 10/27 18:44 BP 146 / 84; Pulse 76; Resp 18; Temp 97.4(O); Pulse Ox 97% on R/A; Weight 60.78 kg / elp 134 lbs (R); Height 5 ft. 2 in. (157.48 cm) (R); 22:05 BP 122 / 67; Pulse 73; Resp 20; Temp 97.7(O); Pulse Ox 96% on R/A; Pain 0/10; jmv 23:05 BP 126 / 74; Pulse 72; Resp 16; Temp 97.3(O); Pulse Ox 96% on R/A; Pain 0/10; lf1 23:07 Pain 0/10; lf1 18:44 Body Mass Index 24.51 (60.78 kg, 157.48 cm) elp MDM: 19:58 NS 0.9% 1000 ml IV at bolus once ordered. mo1 19:58 Ondansetron 4 mg IVP once ordered. mo1 19:58 IV Saline Lock ordered. mo1 19:58 Undress patient appropriately for examination ordered. mo1 19:58 morphine 4 mg IVP once ordered. mo1 19:59 Basic Metabolic Profile Ordered. EDMS 19:59 CBC with Diff Ordered. EDMS 19:59 Lipase Ordered. EDMS 19:59 Liver Profile Ordered. EDMS 19:59 Urinalysis Ordered. EDMS 19:59 Amylase Ordered. EDMS 19:59 Urine Culture Ordered. EDMS 19:59 NOTHING BY MOUTH+DIET ordered. EDMS 20:17 Financial registration complete. gjb 20:20 [facility] Payment Agreement was scanned into Consulted and attached to record. gjb 21:01 US Gallbladder Ordered. EDMS 21:10 Amylase Reviewed. mo1 21:11 Lipase Reviewed. mo1 21:11 Basic Metabolic Profile Reviewed. mo1 21:11 Urinalysis Reviewed. mo1 21:12 Liver Profile Reviewed. mo1 21:12 CBC with Diff Reviewed. mo1 21:15 -Blood Culture (Adults Only), peripheral from different site, or from device/port/PICC mo1 etc. if present ordered. 21:15 -Blood Culture Ordered. EDMS 21:19 Lactic Acid (Stewart tube on ice) Ordered. EDMS 21:23 -Blood Culture (Adults Only), peripheral from different site, or from device/port/PICC rs6 etc. if present complete. 21:25 BLOOD CULTURES Ordered. EDMS 21:26 BED REQUEST+ADM ordered. EDMS 21:47 Piperacillin-Tazobactam 3.375 grams IVPB once over 30 mins; dilute in 50mL of NS or D5W mo1 ordered. 22:28 Admission / Observation Status ordered. EDMS 22:29 NPO DIET ordered. EDMS 23:15 metroNIDAZOLE 500 mg IV at 100 mL/hr once over 60 mins ordered. lf1 23:16 LR Solution 1000 ml IV at 125 mL/hr once ordered. lf1 10/28 08:56 T-Sheet-- Draft Copy was scanned into Consulted and attached to record. gb 08:57 Radiology Report was scanned into Consulted and attached to record. gb Administered Medications: 10/27 20:39 Drug: morphine 4 mg [morphine 4 mg/mL intravenous cartridge (1 mL)] Route: IVP; Site: lf1 right antecubital; 23:07 Follow up: Pain 0/10 Adult; Response: Pain is resolved lf1 20:40 Drug: NS 0.9% 1000 ml [sodium chloride 0.9 % intravenous solution] Route: IV; Rate: lf1 bolus; Site: right antecubital; 23:07 Follow up: IV Status: Completed infusion; Infusion discontinued; IV Intake: 1000ml lf1 20:40 Drug: Ondansetron 4 mg [ondansetron HCl 2 mg/mL intravenous solution (2 mL)] Route: lf1 IVP; Site: right antecubital; 22:15 Drug: NS 0.9% 50 ml, Piperacillin-Tazobactam 3.375 grams Route: IVPB; Infused Over: 30 ttb mins; Site: right antecubital; 22:57 Follow up: Response: No Adverse Reaction; No significant change.; IV Status: Completed ttb infusion; IV Intake: 50ml 23:07 Follow up: IV Status: Completed infusion; IV Intake: 50ml lf1 23:14 CANCELLED (Duplicate Order): metroNIDAZOLE 500 mg IV at 100 mL/hr once over 60 mins lf1 23:27 Drug: metroNIDAZOLE 500 mg [metronidazole 500 mg/100 mL-sodium chloride(iso) lf1 intravenous piggyback] Route: IV; Rate: 100 mL/hr; Infused Over: 60 mins; Site: right antecubital; 10/28 00:09 Follow up: IV Status: Infusion continued upon admit lf1 10/27 23:35 Drug: LR 1000 ml [lactated ringers intravenous solution] {Note: Held until antibiotic lf1 finished, transported with pt. on admit.} Route: IV; Rate: 125 mL/hr; Site: right antecubital; 10/28 00:09 Follow up: IV Status: Infusion continued upon admit lf1 Signatures: Dispatcher [employer] EDMS Emilia Henry RN RN Yumi Anderson, Juanpablo Talley RN RN mlb1 Analisa Barnard RN RN jo3 Kathrin Caldwell RN RN lf1 Juanpablo Chase PA PA mo1 Frantz, Maggi, SKATE MAKER SKATE MAKER rs6 Cyndie Gautam Teresa RN ttb The chart was reviewed and I authenticate all verbal orders and agree with the evaluation and treatment provided.Corrections: (The following items were deleted from the chart) 10/27 23:14 23:14 metroNIDAZOLE 500 mg IV at 100 mL/hr once over 60 mins ordered. lf1 lf1 Attachments: 20:20 [place] [facility] [place] gjb 10/28 08:56 T-Sheet-- Draft Copy gb Chart Complete MTDD
--- NOTE | 2016-10-30 01:10 | EDDOCDS ---
Physician Documentation [facility] Name: Surekha Branch Age: 65 yrs Sex: Female : 1950 Arrival Date: 10/27/2016 Time: 18:42 Bed I5 / M5 Private MD: Unknown, Family Dr Disposition: 10/27/16 22:27 Hospitalization ordered by Rito Haider for Inpatient Admission. Preliminary diagnosis are Obstruction of bile duct, Other cholelithiasis with obstruction. - Bed requested for 4 [place]. - Status is Inpatient Admission. lf1 - Condition is Stable. - Problem is new. - Symptoms are unchanged. Historical: - Allergies: no known allergies; - Home Meds: 1. omeprazole 20 mg Oral cpDR 1 cap once daily 2. ondansetron HCl 8 mg Oral tab every 12 hours (Last dose: 10/27/2016 08:00) - PMHx: none; - PSHx: ; - Social history: Smoking status: Patient uses tobacco products, light tobacco smoker. No barriers to communication noted, The patient speaks fluent Slovenian, Speaks appropriately for age. - Family history: Not pertinent. - : The pt / caregiver states he / she is not on anticoagulants. Home medication list is obtained from the patient, pill bottles. - Exposure Risk Screening:: None identified. Vital Signs: 10/27 18:44 BP 146 / 84; Pulse 76; Resp 18; Temp 97.4(O); Pulse Ox 97% on R/A; Weight 60.78 kg / elp 134 lbs (R); Height 5 ft. 2 in. (157.48 cm) (R); 22:05 BP 122 / 67; Pulse 73; Resp 20; Temp 97.7(O); Pulse Ox 96% on R/A; Pain 0/10; jmv 23:05 BP 126 / 74; Pulse 72; Resp 16; Temp 97.3(O); Pulse Ox 96% on R/A; Pain 0/10; lf1 23:07 Pain 0/10; lf1 18:44 Body Mass Index 24.51 (60.78 kg, 157.48 cm) elp MDM: 19:58 NS 0.9% 1000 ml IV at bolus once ordered. mo1 19:58 Ondansetron 4 mg IVP once ordered. mo1 19:58 IV Saline Lock ordered. mo1 19:58 Undress patient appropriately for examination ordered. mo1 19:58 morphine 4 mg IVP once ordered. mo1 19:59 Basic Metabolic Profile Ordered. EDMS 19:59 CBC with Diff Ordered. EDMS 19:59 Lipase Ordered. EDMS 19:59 Liver Profile Ordered. EDMS 19:59 Urinalysis Ordered. EDMS 19:59 Amylase Ordered. EDMS 19:59 Urine Culture Ordered. EDMS 19:59 NOTHING BY MOUTH+DIET ordered. EDMS 20:17 Financial registration complete. gjb 20:20 [facility] Payment Agreement was scanned into [employer] and attached to record. gjb 21:01 US Gallbladder Ordered. EDMS 21:10 Amylase Reviewed. mo1 21:11 Lipase Reviewed. mo1 21:11 Basic Metabolic Profile Reviewed. mo1 21:11 Urinalysis Reviewed. mo1 21:12 Liver Profile Reviewed. mo1 21:12 CBC with Diff Reviewed. mo1 21:15 -Blood Culture (Adults Only), peripheral from different site, or from device/port/PICC mo1 etc. if present ordered. 21:15 -Blood Culture Ordered. EDMS 21:19 Lactic Acid (Stewart tube on ice) Ordered. EDMS 21:23 -Blood Culture (Adults Only), peripheral from different site, or from device/port/PICC rs6 etc. if present complete. 21:25 BLOOD CULTURES Ordered. EDMS 21:26 BED REQUEST+ADM ordered. EDMS 21:47 Piperacillin-Tazobactam 3.375 grams IVPB once over 30 mins; dilute in 50mL of NS or D5W mo1 ordered. 22:28 Admission / Observation Status ordered. EDMS 22:29 NPO DIET ordered. EDMS 23:15 metroNIDAZOLE 500 mg IV at 100 mL/hr once over 60 mins ordered. lf1 23:16 LR Solution 1000 ml IV at 125 mL/hr once ordered. lf1 10/28 08:56 T-Sheet-- Draft Copy was scanned into [employer] and attached to record. gb 08:57 Radiology Report was scanned into [employer] and attached to record. gb Administered Medications: 10/27 20:39 Drug: morphine 4 mg [morphine 4 mg/mL intravenous cartridge (1 mL)] Route: IVP; Site: lf1 right antecubital; 23:07 Follow up: Pain 0/10 Adult; Response: Pain is resolved lf1 20:40 Drug: NS 0.9% 1000 ml [sodium chloride 0.9 % intravenous solution] Route: IV; Rate: lf1 bolus; Site: right antecubital; 23:07 Follow up: IV Status: Completed infusion; Infusion discontinued; IV Intake: 1000ml lf1 20:40 Drug: Ondansetron 4 mg [ondansetron HCl 2 mg/mL intravenous solution (2 mL)] Route: lf1 IVP; Site: right antecubital; 22:15 Drug: NS 0.9% 50 ml, Piperacillin-Tazobactam 3.375 grams Route: IVPB; Infused Over: 30 ttb mins; Site: right antecubital; 22:57 Follow up: Response: No Adverse Reaction; No significant change.; IV Status: Completed ttb infusion; IV Intake: 50ml 23:07 Follow up: IV Status: Completed infusion; IV Intake: 50ml lf1 23:14 CANCELLED (Duplicate Order): metroNIDAZOLE 500 mg IV at 100 mL/hr once over 60 mins lf1 23:27 Drug: metroNIDAZOLE 500 mg [metronidazole 500 mg/100 mL-sodium chloride(iso) lf1 intravenous piggyback] Route: IV; Rate: 100 mL/hr; Infused Over: 60 mins; Site: right antecubital; 10/28 00:09 Follow up: IV Status: Infusion continued upon admit lf1 10/27 23:35 Drug: LR 1000 ml [lactated ringers intravenous solution] {Note: Held until antibiotic lf1 finished, transported with pt. on admit.} Route: IV; Rate: 125 mL/hr; Site: right antecubital; 10/28 00:09 Follow up: IV Status: Infusion continued upon admit lf1 Signatures: Dispatcher [employer] EDMS Emilia Henry RN RN Yumi Anderson, Juanpablo Talley RN RN mlb1 Analisa Barnard RN RN jo3 Kathrin Caldwell RN RN lf1 Juanpablo Chase PA PA mo1 Frantz, Maggi, SENIOR BILLING CONSULTANT SENIOR BILLING CONSULTANT rs6 Cyndie Gautam Teresa RN ttb The chart was reviewed and I authenticate all verbal orders and agree with the evaluation and treatment provided.Corrections: (The following items were deleted from the chart) 10/27 23:14 23:14 metroNIDAZOLE 500 mg IV at 100 mL/hr once over 60 mins ordered. lf1 lf1 Attachments: 20:20 [facility] [place] gjb 10/28 08:56 T-Sheet-- Draft Copy gb Chart Complete MTDD
--- NOTE | 2016-10-30 01:10 | EDDOCDS ---
Nurse's Notes [facility] Name: Surekha Branch Age: 65 yrs Sex: Female : 1950 Arrival Date: 10/27/2016 Time: 18:42 Bed I5 / M5 Private MD: Unknown, Family Dr Diagnosis: Obstruction of bile duct;Other cholelithiasis with obstruction Presentation: 10/27 18:49 Presenting complaint: Patient states: Upper abdominal pain nonstop for the past four mlb1 days US at [facility] this am sent here from PCP Robert Bae. Adult Sepsis Screening: The patient does not have new or worsening altered mentation. Patient's respiratory rate is less than 22. Systolic blood pressure is greater than 100. Patient has a qSOFA score of 0- Negative Sepsis Screen. Suicide/Homicide risk assessment- the patient denies having any suicidal and/or homicidal ideations and does not present with any other emotional, behavioral or mental health complaints. Status: Patient is not a retail service lead merchandiser or dependent. Transition of care: patient was received from a primary care office; Robert Bae. 18:49 Acuity: MAURICIO Level 3 mlb1 18:49 Method Of Arrival: Walkin/Carried/Asstd mlb1 Triage Assessment: 18:55 General: Appears in no apparent distress, Behavior is appropriate for age, cooperative. mlb1 Pain: Location: right upper quadrant and left upper quadrant Pain currently is 4 out of 10 on a pain scale. Pt Declines HIV testing. Historical: - Allergies: no known allergies; - Home Meds: 1. omeprazole 20 mg Oral cpDR 1 cap once daily 2. ondansetron HCl 8 mg Oral tab every 12 hours (Last dose: 10/27/2016 08:00) - PMHx: none; - PSHx: ; - Social history: Smoking status: Patient uses tobacco products, light tobacco smoker. No barriers to communication noted, The patient speaks fluent Icelandic, Speaks appropriately for age. - Family history: Not pertinent. - : The pt / caregiver states he / she is not on anticoagulants. Home medication list is obtained from the patient, pill bottles. - Exposure Risk Screening:: None identified. Screenin:27 Screening information is obtained from the patient. Fall risk: No risks identified. jo3 Assistance ADL's: requires no assistance with activities of daily living. Abuse/DV Screen: The patient / caregiver reports he/she is: not in a situation that causes fear, pain or injury. Nutritional screening: No deficits noted. Advance Directives: There is no active DNR order. home support is adequate. Assessment: 20:27 General: Appears in no apparent distress, comfortable, Behavior is appropriate for age, jo3 cooperative. Neurological: Level of Consciousness is awake, alert, Oriented to person, place, time. Cardiovascular: No deficits noted. Respiratory: Airway is patent Respiratory effort is even, unlabored. GI: Abdomen is non- distended Bowel sounds present X 4 quads. Abd is soft X 4 quads Abd is tender to palpation in right upper quadrant. Derm: Skin is pink, warm & dry. 21:30 General: Appears comfortable, Behavior is cooperative. Pain: Location: abdomen Pain lf1 currently is 4 out of 10 on a pain scale. Neurological: Level of Consciousness is awake, alert. Respiratory: Respiratory effort is even, unlabored. 22:24 General: Appears comfortable, Behavior is cooperative. Pain: Location: left upper lf1 quadrant and right upper quadrant Pain currently is 6 out of 10 on a pain scale. Neurological: Level of Consciousness is awake, alert, Oriented to person, place, time. Respiratory: Respiratory effort is even, unlabored. GI: Denies nausea, vomiting. : Urine is tea colored urine. Derm: Skin is normal. 22:59 General: abx completed and pt ready for transport to floor. Report given to next RN to ttb continue care.. Neurological: Level of Consciousness is awake, alert. Cardiovascular: Chest pain is denied. Respiratory: Denies cough, shortness of breath. GI: Denies nausea, vomiting. 23:05 General: Appears comfortable, Behavior is cooperative. Pain: Denies pain. Neurological: lf1 Level of Consciousness is awake, alert, obeys commands, Oriented to person, place, time. EENT: No deficits noted. Cardiovascular: Chest pain is denied. Respiratory: Respiratory effort is even, unlabored. GI: Denies nausea, vomiting. Derm: Skin is normal. Injury Description: No known injury. 23:36 Adult Sepsis Screening: The patient does not have new or worsening altered mentation. lf1 Patient's respiratory rate is less than 22. Systolic blood pressure is greater than 100. Patient has a qSOFA score of 0- Negative Sepsis Screen. General: Appears in no apparent distress, comfortable, Behavior is cooperative. Pain: Denies pain. Neurological: Level of Consciousness is awake, alert. Respiratory: Respiratory effort is even, unlabored. Derm: Skin is normal. Vital Signs: 18:44 BP 146 / 84; Pulse 76; Resp 18; Temp 97.4(O); Pulse Ox 97% on R/A; Weight 60.78 kg (R); elp Height 5 ft. 2 in. (157.48 cm) (R); 22:05 BP 122 / 67; Pulse 73; Resp 20; Temp 97.7(O); Pulse Ox 96% on R/A; Pain 0/10; jmv 23:05 BP 126 / 74; Pulse 72; Resp 16; Temp 97.3(O); Pulse Ox 96% on R/A; Pain 0/10; lf1 23:07 Pain 0/10; lf1 18:44 Body Mass Index 24.51 (60.78 kg, 157.48 cm) [facility] Vitals: 18:44 Log In Time: October 27, 2016 at 18:41. [facility] ED Course: 18:44 Patient visited by Stacie Do PCA. elp 18:44 Unknown, Family Dr is Private Physician. elp 18:44 Patient moved to Waiting elp 18:45 Patient visited by Stacie Do PCA. elp 18:45 Patient moved to Pre RCE gr2 18:49 Patient visited by Juanpablo Boles, RN. mlb1 18:53 Triage Initiated mlb1 18:56 Patient visited by Juanpablo Boles, RN. mlb1 19:15 Patient moved to Triage 3 rs6 19:38 Juanpablo Chase PA is PHCP. mo1 19:38 Kam Ojeda DO is Attending Physician. mo1 19:56 Patient moved to I5 / M5 rs6 19:57 Patient visited by Juanpablo Chase PA. mo1 20:20 [facility] Payment Agreement was scanned into [email or web address] and attached to record. gjb 20:26 Amylase Sent. jo3 20:26 Basic Metabolic Profile Sent. jo3 20:26 CBC with Diff Sent. jo3 20:26 Lipase Sent. jo3 20:26 Liver Profile Sent. jo3 20:27 The patient / caregiver is instructed regarding the plan of care and ED course. jo3 20:27 Inserted saline lock: 18 gauge in right antecubital area. Labs drawn. (by ED staff). jo3 Sent per order to lab. 20:30 Patient visited by Analisa Barnard RN. jo3 20:40 Urinalysis Sent. lf1 20:40 Urine Culture Sent. lf1 21:17 Patient name changed from Surekha\S\\S\Branch\S\ to Surekha\S\ \S\Branch. EDMS 21:19 Patient moved to Ultrasound br3 21:42 Patient moved to I5 / M5 br3 22:06 Patient visited by Kana Waite PCA. jmv 22:24 Lactic Acid (Stewart tube on ice) Sent. lf1 22:24 -Blood Culture Sent. lf1 22:26 Rito Haider MD is Hospitalizing Provider. mo1 22:29 Patient visited by Kathrin Caldwell RN. lf1 22:44 US Gallbladder Returned. EDMS 23:00 Patient visited by Bella Foster RN. ttb 23:05 No procedures done that require assistance. lf1 10/28 08:56 T-Sheet-- Draft Copy was scanned into [email or web address] and attached to record. gb 08:57 Radiology Report was scanned into [email or web address] and attached to record. gb Administered Medications: 10/27 20:39 Drug: morphine 4 mg [morphine 4 mg/mL intravenous cartridge (1 mL)] Route: IVP; Site: lf1 right antecubital; 23:07 Follow up: Pain 0/10 Adult; Response: Pain is resolved lf1 20:40 Drug: NS 0.9% 1000 ml [sodium chloride 0.9 % intravenous solution] Route: IV; Rate: lf1 bolus; Site: right antecubital; 23:07 Follow up: IV Status: Completed infusion; Infusion discontinued; IV Intake: 1000ml lf1 20:40 Drug: Ondansetron 4 mg [ondansetron HCl 2 mg/mL intravenous solution (2 mL)] Route: lf1 IVP; Site: right antecubital; 22:15 Drug: NS 0.9% 50 ml, Piperacillin-Tazobactam 3.375 grams Route: IVPB; Infused Over: 30 ttb mins; Site: right antecubital; 22:57 Follow up: Response: No Adverse Reaction; No significant change.; IV Status: Completed ttb infusion; IV Intake: 50ml 23:07 Follow up: IV Status: Completed infusion; IV Intake: 50ml lf1 23:14 CANCELLED (Duplicate Order): metroNIDAZOLE 500 mg IV at 100 mL/hr once over 60 mins lf1 23:27 Drug: metroNIDAZOLE 500 mg [metronidazole 500 mg/100 mL-sodium chloride(iso) lf1 intravenous piggyback] Route: IV; Rate: 100 mL/hr; Infused Over: 60 mins; Site: right antecubital; 10/28 00:09 Follow up: IV Status: Infusion continued upon admit lf1 10/27 23:35 Drug: LR 1000 ml [lactated ringers intravenous solution] {Note: Held until antibiotic lf1 finished, transported with pt. on admit.} Route: IV; Rate: 125 mL/hr; Site: right antecubital; 10/28 00:09 Follow up: IV Status: Infusion continued upon admit lf1 Intake: 10/27 22:57 IV: 50.00ml; Total: 50.00ml. ttb 23:07 IV: 50.00ml; Total: 100.00ml. lf1 23:07 IV: 1000.00ml; Total: 1100.00ml. lf1 Order Results: Lab Order: Basic Metabolic Profile; SPEC'M 10/27/16 20:21 Test: GLUCOSE, FASTING; Value: 92; Range: 80-110; Units: MG/DL; Status: F Test: BLOOD UREA NITROGEN; Value: 9; Range: 7-18; Units: MG/DL; Status: F Test: CREATININE FOR GFR; Value: 0.86; Range: 0.55-1.02; Units: MG/DL; Status: F Test: GLOMERULAR FILTRATION RATE; Value: > 60.0; Range: >45; Status: F Test: SODIUM LEVEL; Value: 139; Range: 136-145; Units: MEQ/L; Status: F Test: POTASSIUM SERUM; Value: 4.0; Range: 3.5-5.1; Units: MEQ/L; Status: F Test: CHLORIDE LEVEL; Value: 103; Range: 98-107; Units: MEQ/L; Status: F Test: CARBON DIOXIDE LEVEL; Value: 28; Range: 21-32; Units: MEQ/L; Status: F Test: ANION GAP; Value: 8; Range: 8-16; Units: MEQ/L; Status: F Test: CALCIUM LEVEL; Value: 9.0; Range: 8.8-10.2; Units: MG/DL; Status: F Test Note: ; Units are mL/min/1.73 m2 Chronic Kidney Disease Staging per NKF: Stage I & II GFR >=60 Normal to Mildly Decreased Stage III GFR 30-59 Moderately Decreased Stage IV GFR 15-29 Severely Decreased Stage V GFR <15 Very Little GFR Left ESRD GFR <15 on TETRYL SCREEN OPERATOR Lab Order: CBC with Diff; SPEC'M 10/27/16 20:21 Test: WHITE BLOOD COUNT; Value: 7.0; Range: 4.0-10.0; Units: K/mm3; Status: F Test: RED BLOOD COUNT; Value: 4.68; Range: 4.00-5.40; Units: M/mm3; Status: F Test: HEMOGLOBIN; Value: 14.2; Range: 12.0-16.0; Units: g/dl; Status: F Test: HEMATOCRIT; Value: 44.6; Range: 36.0-47.0; Units: %; Status: F Test: MEAN CORPUSCULAR VOLUME; Value: 95.3; Range: 80.0-96.0; Units: fl; Status: F Test: MEAN CORPUSCULAR HEMOGLOBIN; Value: 30.3; Range: 27.0-33.0; Units: pg; Status: F Test: MEAN CORPUSCULAR HGB CONC; Value: 31.8; Range: 32.0-36.5; Abnormal: Below low normal; Units: g/dl; Status: F Test: RED CELL DISTRIBUTION WIDTH; Value: 13.5; Range: 11.5-14.5; Units: %; Status: F Test: PLATELET COUNT, AUTOMATED; Value: 279; Range: 150-450; Units: k/mm3; Status: F Test: NEUTROPHILS %; Value: 66.4; Range: 36.0-66.0; Abnormal: Above high normal; Units: %; Status: F Test: LYMPH %; Value: 22.6; Range: 24.0-44.0; Abnormal: Below low normal; Units: %; Status: F Test: MONO %; Value: 6.0; Range: 0.0-5.0; Abnormal: Above high normal; Units: %; Status: F Test: EOS %; Value: 1.8; Range: 0.0-3.0; Units: %; Status: F Test: BASO %; Value: 1.9; Range: 0.0-1.0; Abnormal: Above high normal; Units: %; Status: F Test: LARGE UNSTAINED CELL %; Value: 1.3; Range: 0.0-4.0; Units: %; Status: F Test: NEUTROPHILS #; Value: 4.7; Range: 1.8-7.7; Units: K/mm3; Status: F Test: LYMPH #; Value: 1.7; Range: 1.5-4.5; Units: K/mm3; Status: F Test: MONO #; Value: 0.4; Range: 0.0-0.8; Units: K/mm3; Status: F Test: EOS #; Value: 0.1; Range: 0.0-0.50; Units: K/mm3; Status: F Test: BASO #; Value: 0.1; Range: 0.0-0.2; Units: K/mm3; Status: F Test: LARGE UNSTAINED CELL #; Value: 0.1; Range: 0.0-0.4; Units: K/mm3; Status: F Lab Order: Lipase; SPEC'M 10/27/16 20:21 Test: LIPASE; Value: 84; Range: 73-393; Units: U/L; Status: F Lab Order: Liver Profile; SPEC'M 10/27/16 20:21 Test: AST/SGOT; Value: 485; Range: 15-37; Abnormal: Above high normal; Units: U/L; Status: F Test: ALT/SGPT; Value: 865; Range: 12-78; Abnormal: Above high normal; Units: U/L; Status: F Test: ALKALINE PHOSPHATASE; Value: 390; Range: 45-117; Abnormal: Above high normal; Units: U/L; Status: F Test: BILIRUBIN,TOTAL; Value: 6.7; Range: 0.2-1.0; Abnormal: Above high normal; Units: MG/DL; Status: F Test: BILIRUBIN,DIRECT; Value: 4.7; Range: 0.0-0.2; Abnormal: Above high normal; Units: MG/DL; Status: F Test: TOTAL PROTEIN; Value: 7.2; Range: 6.4-8.2; Units: GM/DL; Status: F Test: ALBUMIN; Value: 3.9; Range: 3.2-5.2; Units: GM/DL; Status: F Test: ALBUMIN/GLOBULIN RATIO; Value: 1.18; Range: 1.00-1.93; Status: F Lab Order: Urinalysis; SPEC'M 10/27/16 20:30 Test: APPEARANCE, URINE; Value: CLEAR; Range: CLEAR; Status: F Test: COLOR, URINE; Value: ALICE; Range: YELLOW; Status: F Test: PH,URINE; Value: 5.0; Range: 5.0-9.0; Units: UNITS; Status: F Test: SPECIFIC GRAVITY URINE AUTO; Value: 1.030; Range: 1.002-1.035; Status: F Test: PROTEIN, URINE AUTO; Value: 1+; Range: NEGATIVE; Abnormal: Above high normal; Units: mg/dL; Status: F Test: GLUCOSE, URINE (UA) AUTO; Value: NEGATIVE; Range: NEGATIVE; Units: mg/dL; Status: F Test: KETONE, URINE AUTO; Value: TRACE; Range: NEGATIVE; Abnormal: Above high normal; Units: mg/dL; Status: F Test: UROBILINOGEN, URINE AUTO; Value: 4.0; Range: 0.0-2.0; Abnormal: Above high normal; Units: mg/dL; Status: F Test: BILIRUBIN, URINE AUTO; Value: 2+; Range: NEGATIVE; Abnormal: Above high normal; Status: F Test: NITRITE, URINE AUTO; Value: NEGATIVE; Range: NEGATIVE; Status: F Test: LEUKOCYTE ESTERASE, URINE AUTO; Value: 1+; Range: NEGATIVE; Abnormal: Above high normal; Status: F Test: BLOOD, URINE BLOOD; Value: NEGATIVE; Range: NEGATIVE; Status: F Test: WBC, URINE AUTO; Value: 23; Range: 0-3; Abnormal: Above high normal; Units: /HPF; Status: F Test: RBC, URINE AUTO; Value: 1; Range: 0-3; Units: /HPF; Status: F Test: BACTERIA, URINE AUTO; Value: 1+; Range: NEGATIVE; Abnormal: Above high normal; Status: F Test: SQUAMOUS EPITHELIAL CELL UR AU; Value: 2; Range: 0-6; Units: /HPF; Status: F Test: MUCUS, URINE; Value: LARGE; Range: NEGATIVE; Status: F Test: HYALINE CAST, URINE AUTO; Value: 0; Range: 0-1; Units: /LPF; Status: F Lab Order: Amylase; SPEC'M 10/27/16 20:21 Test: AMYLASE; Value: 28; Range: 25-115; Units: U/L; Status: F Lab Order: Lactic Acid (Stewart tube on ice); SPEC'M 10/27/16 22:18 Test: LACTIC ACID LEVEL, LACTATE; Value: 0.8; Range: 0.4-2.0; Units: MMOL/L; Status: F Radiology Order: US Gallbladder Test: US Gallbladder REASON FOR EXAMINATION: Biliary Colic; ; CLINICAL HISTORY: Biliary colic; TECHNIQUE: Realtime sonographic images were obtained in multiple projections.; COMMENTS:; The liver is of normal size, parenchyma demonstrates normal echogenicity. No discrete hepatic mass is; seen.; There is no intra or extrahepatic biliary ductal dilatation. CBD measures . The gallbladder is physio; logically distended with sludge and stones. Wall thickening of 4.3 mm noted without pericholecystic f; luid or sonographic Paulino sign. CBD is dilated at 1.0 cm.; The right kidney measures 10.0 cm otherwise unremarkable.; No free fluid.; IMPRESSION:; Cholelithiasis and small sludge is noted with wall thickening. No additional findings to suggest acut; e cholecystitis. CBD however is dilated at 1 cm and MRCP should be considered to exclude choledocholi; thiasis.; Thank you for your kind referral of this patient.; ; Outcome: 22:27 Decision to Hospitalize by Provider. mo1 10/28 00:08 Patient left the ED. lf1 Signatures: Dispatcher [employer] EDMS Yumi Richard, Juanpablo Talley RN RN mlb1 Analisa BarnardRN RN [id number] Kathrin Caldwell RN RN lf1 Maricruz Rutherford br3 Bella Foster, RN RN ttb Duane Rutherford gr2 Juanpablo Chase PA PA mo1 Stacie Do, GROCERY CARRIER GROCERY CARRIER elp Frantz, Maggi, GROCERY CARRIER GROCERY CARRIER rs6 Cyndie Gautamb Ravindra, Kana, GROCERY CARRIER GROCERY CARRIER jmv Chart Complete MTDD
[2016-10-30 04:00] VITALS: BP 137/77
[2016-10-30] MEDS: NORCO, ANEXSIA 5/325MG TABLET (HYDROcodone/ACETAMINOPHEN) PO PRN ×2 (04:09→09:06)
[2016-10-30] MEDS: AMPICILLIN SOD/SULBACTAM SOD 3 GM in D5W MINI-BAG PLUS 100 ML IV SCH ×2 (04:09→10:18)
[2016-10-30 07:01] LABS: BASO % 0.2 % (0.0-1.0); EOS % 0.6 % (0.0-3.0); LARGE UNSTAINED CELL # 0.1 K/mm3 (0.0-0.4); LARGE UNSTAINED CELL % 1.4 % (0.0-4.0); LYMPH # 1.1 K/mm3 (1.5-4.5); LYMPH % 16.9 % (24.0-44.0); MEAN CORPUSCULAR HEMOGLOBIN 30.3 pg (27.0-33.0); MEAN CORPUSCULAR HGB CONC 32.7 g/dl (32.0-36.5); MEAN CORPUSCULAR VOLUME 92.8 fl (80.0-96.0); MONO # 0.4 K/mm3 (0.0-0.8); MONO % 5.6 % (0.0-5.0); NEUTROPHILS # 4.8 K/mm3 (1.8-7.7); NEUTROPHILS % 75.4 % (36.0-66.0); PLATELET COUNT, AUTOMATED 208 k/mm3 (150-450); RED CELL DISTRIBUTION WIDTH 12.8 % (11.5-14.5); WHITE BLOOD COUNT 6.3 K/mm3 (4.0-10.0)
[2016-10-30 07:23] LABS: ALBUMIN/GLOBULIN RATIO 1.15 (1.00-1.93); ALKALINE PHOSPHATASE 344 U/L (45-117); ALT/SGPT 442 U/L (12-78); ANION GAP 7 MEQ/L (8-16); AST/SGOT 141 U/L (15-37); BILIRUBIN,TOTAL 1.4 MG/DL (0.2-1.0); BLOOD UREA NITROGEN 7 MG/DL (7-18); CALCIUM LEVEL 8.5 MG/DL (8.8-10.2); CARBON DIOXIDE LEVEL 29 MEQ/L (21-32); CHLORIDE LEVEL 104 MEQ/L (98-107); CREATININE FOR GFR 0.63 MG/DL (0.55-1.02); GLOMERULAR FILTRATION RATE > 60.0 (>45); GLUCOSE, FASTING 116 MG/DL (80-110); POTASSIUM SERUM 3.7 MEQ/L (3.5-5.1); SODIUM LEVEL 140 MEQ/L (136-145); TOTAL PROTEIN 5.6 GM/DL (6.4-8.2)
[2016-10-30 08:00] VITALS: BP 131/73
[2016-10-30] MEDS: SENOKOT S TAB PO SCH (09:05)
[2016-10-30] MEDS: PANTOPRAZOLE 20 MG TAB PO SCH (09:05)
[2016-10-30] MEDS ORDERED: NORCOTAB PO (11:42)
== END 2016-10-30 12:40 | disposition home or self-care (01) | DRG 419 ==
LOC: M ED 18:42 → M ED INP 22:22 → M MSPAV 23:58 → M PED 10-28 22:23
PROVIDERS: ADMIT Surgery; ATTEND Surgery
PROC: 0F998ZZ Drainage of Common Bile Duct, Via Natural or Artificial Opening Endoscopic (ICD-10-PCS; 2016-10-28)
PROC: 0FT44ZZ Resection of Gallbladder, Percutaneous Endoscopic Approach (ICD-10-PCS; principal; 2016-10-29 11:00)
DX: K80.71 Calculus of gallbladder and bile duct without cholecystitis with obstruction (principal); K76.0 Fatty (change of) liver, not elsewhere classified; F17.210 Nicotine dependence, cigarettes, uncomplicated; Z79.899 Other long term (current) drug therapy

== ENCOUNTER → 2023-04-18 | Outpatient (REF) | payer OTHER ==
[~2023-04-18] MED LIST: ACET500T15 PO; HYDR-3715 PO; OMEP-358 PO; ONDA-84 PO
[2023-04-22 19:07] LABS: RUBEOLA IgG ANTIBODY >300.0 AU/mL (Immune >16.4)
== END ==
LOC: M SFHCCLAY 10:58
PROVIDERS: ATTEND Family Medicine
DX: Z02.1 Encounter for pre-employment examination (principal)